=== PATIENT | male | born 1955 | race Caucasian/White ===

== ENCOUNTER 2018-09-27 18:09 | Emergency (ER) | payer OTHER, SELFPAY ==
[2018-09-27 18:06] VITALS: BP 157/82; PULSE 72; RESP 16; TEMP 36.7; O2SAT 100; BMI 38.0
--- NOTE | 2018-09-27 18:09 | [facility].EDPSYCH ---
ED Disposition Clinical Impression: Depression with suicidal ideation Disposition: Xfer Psychiatric Hosp Condition on Discharge: Good Time of Disposition: 18:13 - Critical Care Critical Care Time: No Attestation: On , the high probability of a clinically significant, sudden or life threatening deterioration of the following system(s) required my full and direct attention, intervention and personal management. The time I documented below is in addition to time spent performing reported procedures but includes the following listed in this critical care notation. Medical Decision Making - Medical Records Medical records reviewed: Yes: I reviewed the patient's medical records. - Jeet Inquiry Pt receiving controlled substance: No Jeet was queried for this patient: No - Lab Data Lab results reviewed: Yes: I reviewed the patient's lab results. Psych HPI - General Chief Complaint: Psychiatric Symptoms Stated Complaint: SI Time Seen by Provider: 09/27/18 18:09 Source of Information: Patient Limitations: No Limitations - History of Present Illness HPI Narrative: bipolar history, previous Suicide attempts via drug overdose. Today, he planned to hang himself in the stairwall at [employer]. States he bought cheap rope at [employer]. Denies any drug ingestion - Related Data Home Medications Medication Instructions Recorded Confirmed Amlodipine Besylate [Amlodipine 5 mg PO DAILY 03/26/18 06/06/18 10mg Tab] Aspirin 81 mg PO DAILY 03/26/18 06/06/18 Atorvastatin Calcium [Atorvastatin 40 mg PO DAILY 03/26/18 06/06/18 40mg Tab] Fluoxetine HCl [Prozac 20mg 20 mg PO DAILY 03/26/18 06/06/18 Capsule] Insulin Aspart [Novolog] 64 unit SQ PM 03/26/18 06/06/18 Levothyroxine Sodium 100 mg PO DAILY 03/26/18 06/06/18 [Levothyroxine 100mcg (0.1MG) Tab] Lisinopril [Lisinopril 5mg Tablet] 5 mg PO DAILY 03/26/18 06/06/18 Metformin HCl 1,000 mg PO DAILY 03/26/18 06/06/18 Quetiapine Fumarate 400 mg PO DAILY 03/26/18 06/06/18 Sitagliptin Phosphate [Januvia 100 mg PO DAILYDM 03/26/18 06/06/18 100mg tablet] Previous Rx's Medication Instructions Recorded pen needle, diabetic 32 gauge x See Dose Instructions .ROUTE 08/22/18 .MEDSUPPLY #100 each Allergies Allergy/AdvReac Type Severity Reaction Status Date / Time No Known Allergies Allergy Verified 04/23/18 23:55 [facility] History - Hepatitis A Screen Attestation statement:: This patient has been screened for Hepatitis A risk factors. I have reviewed the patient's past medical history: Yes Medical History: Reports:: Diabetes Mellitus Type 2 Denies:: Cancer, Diabetes Mellitus Type 1, MRSA Amputation: No Fractures: No - Social History Smoking Status: Never smoker Tobacco Type: smokeless tobacco Alcohol Intake: never Occupational Status: other - Psychiatric History Pschychiatric History:: Denies:: Suicide Attempt ROS Obtained: Yes All systems reviewed & no additional complaints - Constitutional Constitutional: Denies fever(s) - Eyes Eyes: Denies change in vision - Cardiovascular Cardiovascular: Denies chest pain, Denies chest pain at rest - Respiratory Respiratory: Yes system reviewed and no additional complaints, except as docu, No chest congestion, No cough, No dyspnea, No dyspnea on exertion - Gastrointestinal Gastrointestingal: Denies: system reviewed and no additional complaints, except as docu, abdominal pain - Musculoskeletal Musculoskeletal: Denies joint swelling, Denies muscle cramps, Denies muscle weakness - Integumentary/Breasts Skin/Breast: Denies rash, Denies skin pain - Neurologic Neurologic: Denies abnormal speech, Denies confusion, Denies vertigo, Denies weakness - Hematologic/Lymphatic Henatologic/Lymphatic: Denies easy bleeding Physical Exam - General General appearance: alert, in no apparent distress - Head Head exam: atraumatic, normocephalic, normal inspection - ENT ENT exam: Presen
--- NOTE | 2018-09-27 18:12 | ED_ITS ---
ED Disposition Clinical Impression: Depression with suicidal ideation Disposition: Xfer Psychiatric Hosp Condition on Discharge: Good Time of Disposition: 18:13 - Critical Care Critical Care Time: No Attestation: On , the high probability of a clinically significant, sudden or life threatening deterioration of the following system(s) required my full and direct attention, intervention and personal management. The time I documented below is in addition to time spent performing reported procedures but includes the following listed in this critical care notation. Medical Decision Making - Medical Records Medical records reviewed: Yes: I reviewed the patient's medical records. - Jeet Inquiry Pt receiving controlled substance: No Jeet was queried for this patient: No - Lab Data Lab results reviewed: Yes: I reviewed the patient's lab results. Psych HPI - General Chief Complaint: Psychiatric Symptoms Stated Complaint: SI Time Seen by Provider: 09/27/18 18:09 Source of Information: Patient Limitations: No Limitations - History of Present Illness HPI Narrative: bipolar history, previous Suicide attempts via drug overdose. Today, he planned to hang himself in the stairwall at [employer]. States he bought cheap rope at [employer]. Denies any drug ingestion - Related Data Home Medications Medication Instructions Recorded Confirmed Amlodipine Besylate [Amlodipine 5 mg PO DAILY 03/26/18 06/06/18 10mg Tab] Aspirin 81 mg PO DAILY 03/26/18 06/06/18 Atorvastatin Calcium [Atorvastatin 40 mg PO DAILY 03/26/18 06/06/18 40mg Tab] Fluoxetine HCl [Prozac 20mg 20 mg PO DAILY 03/26/18 06/06/18 Capsule] Insulin Aspart [Novolog] 64 unit SQ PM 03/26/18 06/06/18 Levothyroxine Sodium 100 mg PO DAILY 03/26/18 06/06/18 [Levothyroxine 100mcg (0.1MG) Tab] Lisinopril [Lisinopril 5mg Tablet] 5 mg PO DAILY 03/26/18 06/06/18 Metformin HCl 1,000 mg PO DAILY 03/26/18 06/06/18 Quetiapine Fumarate 400 mg PO DAILY 03/26/18 06/06/18 Sitagliptin Phosphate [Januvia 100 mg PO DAILYDM 03/26/18 06/06/18 100mg tablet] Previous Rx's Medication Instructions Recorded pen needle, diabetic 32 gauge x See Dose Instructions .ROUTE 08/22/18 .MEDSUPPLY #100 each Allergies Allergy/AdvReac Type Severity Reaction Status Date / Time No Known Allergies Allergy Verified 04/23/18 23:55 [facility] History - Hepatitis A Screen Attestation statement:: This patient has been screened for Hepatitis A risk factors. I have reviewed the patient's past medical history: Yes Medical History: Reports:: Diabetes Mellitus Type 2 Denies:: Cancer, Diabetes Mellitus Type 1, MRSA Amputation: No Fractures: No - Social History Smoking Status: Never smoker Tobacco Type: smokeless tobacco Alcohol Intake: never Occupational Status: other - Psychiatric History Pschychiatric History:: Denies:: Suicide Attempt ROS Obtained: Yes All systems reviewed & no additional complaints - Constitutional Constitutional: Denies fever(s) - Eyes Eyes: Denies change in vision - Cardiovascular Cardiovascular: Denies chest pain, Denies chest pain at rest - Respiratory Respiratory: Yes system reviewed and no additional compl
[2018-09-27 18:26] VITALS: BP 112/70; PULSE 81; RESP 16; TEMP 36.7; O2SAT 98
== END 2018-09-27 18:29 ==
PROVIDERS: Emergency Provider Emergency Medicine; PCP Emergency Medicine
DX: R45.851 Suicidal ideations (principal); F32.9 Major depressive disorder, single episode, unspecified; F20.9 Schizophrenia, unspecified; E11.9 Type 2 diabetes mellitus without complications; Z79.4 Long term (current) use of insulin; Z79.899 Other long term (current) drug therapy
CPT/HCPCS: 99282